=== PATIENT | male | born 1985 | race Asian ===

== ENCOUNTER 2018-05-27 13:48 | Inpatient (IN) | payer MEDICAID, OTHER ==
[~2018-05-27] VITALS: Ht 177.8 cm; Wt 68.7 kg
[2018-05-27 14:59] LABS: GLUCOSE,POINT OF CARE 97 MG/DL (70-110)
[2018-05-27] MEDS ORDERED: QUET50TA PO (15:00)
[2018-05-27 15:29] LABS: BASOPHILS % (AUTO) 0.2 % (0.0-2.0); EOSINOPHILS % (AUTO) 0.1 % (1.0-6.0); HEMATOCRIT 45.6 % (41-53); LYMPHOCYTES # (AUTO) 2.6 K/uL (1.0-4.8); LYMPHOCYTES % (AUTO) 24.1 % (22.0-44.0); MEAN CORPUSCULAR HEMOGLOBIN 33.1 pg (26.0-34.0); MEAN CORPUSCULAR VOLUME 95 fL (80-100); MONOCYTES # (AUTO) 1.4 K/uL (0.1-1.0); MONOCYTES % (AUTO) 12.4 % (2.0-9.0); NEUTROPHILS # (AUTO) 6.9 K/uL (1.8-7.7); NEUTROPHILS % (AUTO) 63.2 % (40.0-70.0); PLATELET COUNT (AUTO) 191 K/uL (150-450); RED BLOOD CELL COUNT(AUTO) 4.82 MIL/uL (4.50-5.90); RED CELL DISTRIBUTION WIDTH 13.3 % (11.5-14.5)
[2018-05-27 15:33] LABS: ANION GAP 11 mmol/L (8-16); CALCIUM, TOTAL 9.2 mg/dL (8.8-10.5); CARBON DIOXIDE 28 mmol/L (22-29); CHLORIDE 101 mmol/L (98-107); CREATININE 0.99 mg/dL (0.60-1.30); GLOMERULAR FILTR. RATE CALC > 60 mL/min (>60); GLUCOSE,RANDOM 86 mg/dL (70-110); POTASSIUM 4.5 mmol/L (3.5-5.1); SODIUM SERUM 140 mmol/L (136-145); UREA NITROGEN, BLOOD 17 mg/dL (7-18)
[2018-05-27] MEDS ORDERED: DIVA125T2 PO (15:37)
[2018-05-27] MEDS ORDERED: ABAC1TAB15 PO (15:37)
[2018-05-27 15:40] LABS: ALANINE AMINOTRANSFERASE 50 U/L (12-78); ALBUMIN 4.6 g/dL (3.4-5.0); ALKALINE PHOSPHATASE 68 U/L (46-116); ASPARTATE AMINOTRANSFERASE 188 U/L (15-37); BILIRUBIN,TOTAL 1.1 mg/dL (0.1-1.0); TOTAL PROTEIN, SERUM 7.8 g/dL (6.4-8.2)
[2018-05-27 19:10] LABS: AMPHET/METH SCREEN,URINE NEGATIVE (NEGATIVE); BARBITURATE SCREEN, URINE NEGATIVE (NEGATIVE); BENZODIAZEPINES SCREEN,URINE NEGATIVE (NEGATIVE); CANNABINOID SCREEN,URINE POSITIVE (NEGATIVE); COCAINE SCREEN,URINE NEGATIVE (NEGATIVE); METHADONE SCREEN, URINE NEGATIVE (NEGATIVE); OPIATE SCREEN,URINE NEGATIVE (NEGATIVE); PHENCYCLIDINE SCREEN,URINE NEGATIVE (NEGATIVE)
[2018-05-27] MEDS ORDERED: LORazepam 2 MG TABLET PO PRN (20:00)
[2018-05-27] MEDS ORDERED: ZOLPIDEM TARTRATE 10 MG TABLET PO PRN (20:00)
[2018-05-27] MEDS ORDERED: HALOPERIDOL 5 MG TABLET PO PRN (20:00)
[2018-05-27] MEDS ORDERED: LOPERAMIDE HCL 2 MG CAPSULE PO PRN (21:30)
[2018-05-27] MEDS ORDERED: MAGNESIUM HYDROXIDE SUSPENSION 30 ML UDCUP PO PRN (21:30)
[2018-05-27] MEDS ORDERED: GuaiFENesin/D-METHORPHAN [SUGAR-FREE] 200-20MG/10 ML SYRUP UDCUP PO PRN (21:30)
[2018-05-27] MEDS ORDERED: ACETAMINOPHEN 325 MG TABLET PO PRN (21:30)
[2018-05-27] MEDS ORDERED: PETROLATUM,WHITE 71 GM JELLY TP PRN (21:30)
[2018-05-27] MEDS ORDERED: ONDANSETRON HCL 4 MG TABLET PO PRN (21:30)
[2018-05-27] MEDS ORDERED: IBUPROFEN 400 MG TABLET PO PRN (21:30)
[2018-05-27] MEDS ORDERED: ALBUTEROL SULFATE HFA 90 MCG/PUFF 8 GM INHALER IH PRN (21:30)
[2018-05-27] MEDS ORDERED: DOCUSATE SODIUM 100 MG CAPSULE PO PRN (21:30)
[2018-05-27] MEDS ORDERED: CloNIDine HCL 0.1 MG TABLET PO PRN (21:30)
[2018-05-27] MEDS ORDERED: MAG HYDROX/AL HYDROX/SIMETH ES 30 ML SUSPENSION UDCUP PO PRN (21:30)
[2018-05-27 21:31] VITALS: BP 113/63
[2018-05-28 07:14] LABS: HEMOGLOBIN A1C 5.6 % (4.5-6.2)
[2018-05-28 07:31] LABS: FREE T4 (FREE THYROXINE) 1.15 ng/dL (0.76-1.46); THYROID STIMULATING HORMONE 1.2 uIU/mL (0.36-3.74)
[2018-05-28] MEDS: NICOTINE 14 MG/24 HOUR PATCH TD SCH (10:13)
[2018-05-28 12:26] VITALS: BP 97/69
[2018-05-28 16:29] VITALS: BP 124/77
[2018-05-28 18:28] VITALS: BP 91/46
[2018-05-28] MEDS: DIVALPROEX SODIUM 500 MG ER TABLET PO SCH (21:58)
[2018-05-28] MEDS: QUEtiapine FUMARATE 200 MG TABLET PO SCH (21:58)
[2018-05-29] MEDS: DOLUTEGRAVIR SODIUM 50 MG TABLET PO SCH (08:51)
[2018-05-29] MEDS: ABACAVIR SULFATE 300 MG TABLET PO SCH (08:51)
[2018-05-29] MEDS: NICOTINE 14 MG/24 HOUR PATCH TD SCH (08:56)
[2018-05-29] MEDS ORDERED: *NON-FORMULARY MED [ENTER DRUG, DOSE, FREQ IN COMMENTS] CLINICAL SCH (09:00)
[2018-05-29 10:04] VITALS: BP 101/57
[2018-05-29 18:08] VITALS: BP 102/64
[2018-05-29] MEDS: QUEtiapine FUMARATE 200 MG TABLET PO SCH (20:10)
[2018-05-29] MEDS: DIVALPROEX SODIUM 500 MG ER TABLET PO SCH (20:10)
[2018-05-30 08:41] VITALS: BP 113/71
[2018-05-30] MEDS: DOLUTEGRAVIR SODIUM 50 MG TABLET PO SCH (09:30)
[2018-05-30] MEDS: ABACAVIR SULFATE 300 MG TABLET PO SCH (09:30)
[2018-05-30] MEDS: NICOTINE 14 MG/24 HOUR PATCH TD SCH (09:34)
[2018-05-30 20:35] VITALS: BP 127/78
[2018-05-30] MEDS: DIVALPROEX SODIUM 500 MG ER TABLET PO SCH (20:44)
[2018-05-30] MEDS: QUEtiapine FUMARATE 200 MG TABLET PO SCH (20:48)
[2018-05-31 08:22] VITALS: BP 120/75
[2018-05-31] MEDS: ABACAVIR SULFATE 300 MG TABLET PO SCH (09:01)
[2018-05-31] MEDS: DOLUTEGRAVIR SODIUM 50 MG TABLET PO SCH (09:02)
[2018-05-31] MEDS: NICOTINE 14 MG/24 HOUR PATCH TD SCH (09:04)
[2018-05-31 19:15] VITALS: BP 95/60
[2018-05-31] MEDS: DIVALPROEX SODIUM 500 MG ER TABLET PO SCH (20:49)
[2018-05-31] MEDS: QUEtiapine FUMARATE 200 MG TABLET PO SCH (20:49)
[2018-06-01] MEDS: ABACAVIR SULFATE 300 MG TABLET PO SCH (08:53)
[2018-06-01] MEDS: DOLUTEGRAVIR SODIUM 50 MG TABLET PO SCH (08:54)
[2018-06-01] MEDS: NICOTINE 14 MG/24 HOUR PATCH TD SCH (08:54)
[2018-06-01 11:01] VITALS: BP 97/61
[2018-06-01 16:56] VITALS: BP 112/71
[2018-06-01] MEDS: QUEtiapine FUMARATE 200 MG TABLET PO SCH (20:47)
[2018-06-01] MEDS: DIVALPROEX SODIUM 500 MG ER TABLET PO SCH (20:47)
[2018-06-02] MEDS: ABACAVIR SULFATE 300 MG TABLET PO SCH (09:04)
[2018-06-02] MEDS: NICOTINE 14 MG/24 HOUR PATCH TD SCH (09:04)
[2018-06-02] MEDS: DOLUTEGRAVIR SODIUM 50 MG TABLET PO SCH (09:04)
[2018-06-02 09:35] VITALS: BP 98/58
[2018-06-02 16:45] VITALS: BP 125/79
[2018-06-02] MEDS: DIVALPROEX SODIUM 500 MG ER TABLET PO SCH (21:11)
[2018-06-02] MEDS: QUEtiapine FUMARATE 200 MG TABLET PO SCH (21:11)
[2018-06-03] MEDS: ABACAVIR SULFATE 300 MG TABLET PO SCH (09:30)
[2018-06-03] MEDS: DOLUTEGRAVIR SODIUM 50 MG TABLET PO SCH (09:30)
[2018-06-03] MEDS: NICOTINE 14 MG/24 HOUR PATCH TD SCH (09:31)
[2018-06-03 10:24] VITALS: BP 116/73
[2018-06-03 16:39] VITALS: BP 103/71
[2018-06-03] MEDS: QUEtiapine FUMARATE 200 MG TABLET PO SCH (20:35)
[2018-06-03] MEDS: DIVALPROEX SODIUM 500 MG ER TABLET PO SCH (20:35)
[2018-06-04 08:59] VITALS: BP 119/78
[2018-06-04] MEDS: DOLUTEGRAVIR SODIUM 50 MG TABLET PO SCH (09:09)
[2018-06-04] MEDS: ABACAVIR SULFATE 300 MG TABLET PO SCH (09:09)
[2018-06-04] MEDS: NICOTINE 14 MG/24 HOUR PATCH TD SCH (12:23)
[2018-06-04 17:30] VITALS: BP 105/68
[2018-06-04] MEDS: DIVALPROEX SODIUM 500 MG ER TABLET PO SCH (20:13)
[2018-06-04] MEDS: QUEtiapine FUMARATE 200 MG TABLET PO SCH (20:13)
[2018-06-05 08:58] VITALS: BP 116/67
[2018-06-05] MEDS: DOLUTEGRAVIR SODIUM 50 MG TABLET PO SCH (09:28)
[2018-06-05] MEDS: NICOTINE 14 MG/24 HOUR PATCH TD SCH (09:29)
[2018-06-05] MEDS: ABACAVIR SULFATE 300 MG TABLET PO SCH (09:29)
[2018-06-05 17:00] VITALS: BP 134/86
[2018-06-05] MEDS: QUEtiapine FUMARATE 200 MG TABLET PO SCH (20:31)
[2018-06-05] MEDS: DIVALPROEX SODIUM 500 MG ER TABLET PO SCH (20:31)
[2018-06-06] MEDS: ABACAVIR SULFATE 300 MG TABLET PO SCH (08:52)
[2018-06-06] MEDS: DOLUTEGRAVIR SODIUM 50 MG TABLET PO SCH (08:53)
[2018-06-06] MEDS: NICOTINE 14 MG/24 HOUR PATCH TD SCH (08:54)
[2018-06-06 11:07] VITALS: BP 115/69
[2018-06-06] MEDS ORDERED: QUET200T PO (11:32)
[2018-06-06] MEDS ORDERED: DIVA500T52 PO ×2 (11:32→11:42)
[2018-06-06] MEDS ORDERED: DOLU50TA PO (11:35)
[2018-06-06] MEDS ORDERED: LAMI300T PO (11:35)
[2018-06-06] MEDS ORDERED: QUET200T29 PO (11:42)
== END 2018-06-06 20:45 | disposition home or self-care (01) | DRG 750 ==
LOC: EMS 13:49 → 3EI 20:00
DX: F25.0 Schizoaffective disorder, bipolar type (principal); R74.0 Nonspecific elevation of levels of transaminase and lactic acid dehydrogenase [LDH]; F12.10 Cannabis abuse, uncomplicated; G47.00 Insomnia, unspecified; Z79.899 Other long term (current) drug therapy; Z91.5 Personal history of self-harm
CPT/HCPCS: 73552; 83036; 84439; 84443; 87081; G0480